=== PATIENT | female | born 1990 | race Caucasian/White ===

== ENCOUNTER 2017-07-19 08:11 | Day surgery (SDC) | payer BC ==
[2017-07-19] VITALS (10 sets, daily range): BP systolic 105–138; BP diastolic 58–88; PULSE 71–103; TEMP 98.1–98.3
[~2017-07-19] VITALS: Ht 167.6 cm; Wt 75.9 kg
[2017-07-19] MEDS ORDERED: XANAX 0.5MG0.5 MG PO (08:28)
[2017-07-19] MEDS ORDERED: PRISTIQ25 MG PO (08:28)
[2017-07-19 08:42] LABS: BASO # 0.1 (0.0-0.2); BASO % 0.7 % (0.0-2.0); EOS # 0.3 (0.0-0.7); EOS % 2.2 % (0-4.0); GRAN # 9.5 (1.4-6.5); HEMATOCRIT 40.3 % (37.0-47.0); HEMOGLOBIN 13.6 g/dl (12.5-16.0); LYMPH # 1.4 (1.2-3.4); LYMPH % 11.4 % (20.0-51.0); MEAN CELL VOLUME 88 fl (80.0-100.0); MEAN CORPUSCULAR HEMOGLOBIN 30 pg (27.0-31.0); MEAN CORPUSCULAR HGB CONC 34 g/dl (33.0-37.0); MEAN PLATELET VOLUME 8.6 fl (7.4-10.4); MONO # 0.9 (0.1-0.6); MONO % 7.5 % (1.7-9.3); PLATELET COUNT 248 K/mm3 (130-400); REDCELL DISTRIBUTION WIDTH-CV 11.9 % (11.5-14.5)
[2017-07-19 08:54] LABS: ALBUMIN 4.6 gm/dL (3.5-5.0); BILIRUBIN,TOTAL 0.5 mg/dL (0.0-1.0); CALCIUM 9.8 mg/dL (8.4-10.2); CREATININE, serum 0.68 mg/dL (0.52-1.25); POTASSIUM 3.9 mmol/L (3.4-5.0); TOTAL PROTEIN 8.9 gm/dL (6.4-8.2)
[2017-07-19 09:24] LABS: COLLECTION METHOD CLEAN CATCH
[2017-07-19 09:30] LABS: PH 7 (5-8); SQUAMOUS EPITHELIAL None Seen /hpf; URINE APPEARANCE Clear; URINE BACTERIA None Seen /hpf; URINE BILIRUBIN Negative (NEGATIVE); URINE BLOOD Negative (NEGATIVE); URINE COLOR Straw; URINE GLUCOSE Negative (NEGATIVE); URINE KETONE Negative (NEGATIVE); URINE LEUKOCYTE ESTERASE Negative (NEGATIVE); URINE NITRATE Negative (NEGATIVE); URINE PROTEIN(semi-quant) Negative (NEGATIVE); URINE RBC 0-2 /hpf; URINE UROBILINOGEN Negative (NEGATIVE)
[2017-07-20 00:15] VITALS: BP 116/64; PULSE 77
[2017-07-20 01:15] VITALS: BP 109/59; PULSE 74; TEMP 98.3
[2017-07-20 06:09] VITALS: BP 105/54; PULSE 75; TEMP 98.5
[2017-07-20 09:30] VITALS: BP 107/61; PULSE 80; TEMP 98.1
[2017-07-20 13:17] VITALS: BP 114/65; PULSE 83; TEMP 99.2
== END 2017-07-20 18:41 | disposition home or self-care (01) ==
LOC: COL.ER 08:11 → SDCO 10:06 → SURG 21:29 → SDCO 07-20 18:41
PROVIDERS: Emergency Medicine
DX: K35.80 Unspecified acute appendicitis (principal); F32.9 Major depressive disorder, single episode, unspecified
CPT/HCPCS: OP; J0171; J0360; J1100; J1170; J1885; J2175; J2250; J2270; J2405; J2543; J2704; J2765; J3010; J7030; J7042; Q9967

== ENCOUNTER 2019-05-11 13:48 | Emergency (ER) | payer BC ==
[~2019-05-11] VITALS: Ht 170.2 cm; Wt 75.0 kg
[~2019-05-11 13:48] MED LIST: PRISTIQ25 MG PO; XANAX 0.5MG0.5 MG PO
[2019-05-11 14:12] VITALS: BP 121/78; TEMP 98.8
[2019-05-11 14:32] LABS: COLLECTION METHOD CLEAN CATCH
[2019-05-11 14:40] LABS: MUCOUS Present /lpf; PH 5 (5-8); SQUAMOUS EPITHELIAL 0-2 /hpf; URINE APPEARANCE Hazy; URINE BACTERIA Rare /hpf; URINE BILIRUBIN Negative (NEGATIVE); URINE BLOOD Negative (NEGATIVE); URINE COLOR Yellow; URINE GLUCOSE Negative (NEGATIVE); URINE KETONE 1+ (NEGATIVE); URINE LEUKOCYTE ESTERASE Negative (NEGATIVE); URINE NITRATE Negative (NEGATIVE); URINE PROTEIN(semi-quant) Negative (NEGATIVE); URINE UROBILINOGEN Negative (NEGATIVE)
[2019-05-11 14:47] LABS: BASO # 0.1 (0.0-0.2); BASO % 0.9 % (0.0-2.0); EOS # 0.3 (0.0-0.7); EOS % 3.5 % (0-4.0); GRAN # 4.5 (1.4-6.5); GRAN % 55.2 % (42.2-75.2); HEMOGLOBIN 12.2 g/dl (12.5-16.0); LYMPH # 2.5 (1.2-3.4); LYMPH % 30.4 % (20.0-51.0); MEAN CELL VOLUME 87 fl (80.0-100.0); MEAN CORPUSCULAR HEMOGLOBIN 29 pg (27.0-31.0); MEAN CORPUSCULAR HGB CONC 34 g/dl (33.0-37.0); MONO # 0.8 (0.1-0.6); MONO % 9.9 % (1.7-9.3); PLATELET COUNT 251 K/mm3 (130-400); RED BLOOD COUNT 4.17 M/mm3 (4.10-5.30); REDCELL DISTRIBUTION WIDTH-CV 12.2 % (11.5-14.5)
[2019-05-11 14:57] LABS: ALBUMIN 4.9 gm/dL (3.5-5.0); BILIRUBIN,TOTAL 0.4 mg/dL (0.0-1.0); CALCIUM 9.5 mg/dL (8.4-10.2); CREATININE, serum 0.71 (0.52-1.25); POTASSIUM 3.6 mmol/L (3.4-5.0); TOTAL PROTEIN 7.9 gm/dL (6.4-8.2)
[2019-05-11 15:04] LABS: HEMATOCRIT 36.4 % (37.0-47.0)
[2019-05-11] MEDS ORDERED: REGLAN 5MG T5 MG/TAB PO (19:13)
[2019-05-11] MEDS ORDERED: PHENERGAN 25 TA25 MG PO (19:13)
[2019-05-11 19:53] VITALS: PULSE 75
== END 2019-05-11 19:53 | disposition home or self-care (01) ==
LOC: COL.ER 13:48
PROVIDERS: Emergency Medicine
DX: K80.50 Calculus of bile duct without cholangitis or cholecystitis without obstruction (principal); F41.9 Anxiety disorder, unspecified
CPT/HCPCS: J2270; J2765; J7030